=== PATIENT | female | born 1955 | race Caucasian/White ===

== ENCOUNTER → 2016-07-08 | Outpatient (CLI) | payer OTHER ==
[~2016-07-08] MED LIST: CA/D1TAB7 PO; FLUT1BLS INH; IPRA15SP NAS; LOSA100T6 PO; MAGNESIUM PO; MATURE MULTIVITAMIN PO; MELA5TAB PO; OMEP40CA6 PO; SERT50TA5 PO; SIMV20TA3 PO; ZOLP10TA5 PO
== END | disposition home or self-care (01) ==
LOC: CFH 06:47
DX: K76.89 Other specified diseases of liver (principal)
CPT/HCPCS: 76700

== ENCOUNTER → 2017-05-30 | Outpatient (CLI) | payer OTHER ==
[~2017-05-30] MED LIST changes: -MELA5TAB PO; +MELA5TAB19 PO
== END | disposition home or self-care (01) ==
LOC: CFH 13:55
PROVIDERS: ATTEND Genetic Counselor, MS
DX: Z12.31 Encounter for screening mammogram for malignant neoplasm of breast (principal)
CPT/HCPCS: 77063; 77067

== ENCOUNTER → 2017-08-09 | Outpatient (CLI) | payer OTHER | END | disposition home or self-care (01) | LOC: CFH 06:36 | PROVIDERS: ATTEND Genetic Counselor, MS | DX: K76.89 Other specified diseases of liver (principal) | CPT/HCPCS: 76700 ==

== ENCOUNTER → 2018-03-14 | Outpatient (CLI) | payer OTHER ==
[~2018-03-14] MED LIST changes: +LOSA100T14 PO; -LOSA100T6 PO; +SERT50TA28 PO; -SERT50TA5 PO
== END | disposition home or self-care (01) ==
LOC: RAD 07:10
PROVIDERS: ATTEND Surgery
DX: K21.9 Gastro-esophageal reflux disease without esophagitis (principal)
CPT/HCPCS: 74220

== ENCOUNTER 2018-03-27 08:43 | Observation (INO) | payer OTHER ==
[2018-03-20 15:21] VITALS: BP 133/88
[~2018-03-27] VITALS: Ht 152.4 cm; Wt 60.5 kg
[~2018-03-27 08:43] MED LIST changes: +CROM26SP5 NS; +DIPH25CA61 PO; +ESOM40CA PO; +FISH1CAP PO; +FLAX10004 PO; +FLUT15.815 NS; +GABA300C10 PO; +HYDROCHLOROTH12.5 MG PO; +IBUP-1222 PO; +LORA-439 PO; +MULT-658 PO; +SERT100T PO; +ZOLP5TAB6 PO; +allergy shot IM
[2018-03-27] MEDS ORDERED: LACTATED RINGERS 1,000 ML IV SCH (09:28)
[2018-03-27] MEDS ORDERED: OSTEOPOROSIS MED (09:38)
[2018-03-27] MEDS ORDERED: FENTANYL PF 250 MCG/5ML ONE (11:27)
[2018-03-27] MEDS ORDERED: MIDAZOLAM 1 MG/ML, 2ML ONE (11:27)
[2018-03-27] MEDS ORDERED: ROCURONIUM 10MG/ML,5ML ONE (11:28)
[2018-03-27] MEDS ORDERED: LIDOCAINE-MPF 2% ,5ML ONE (11:29)
[2018-03-27] MEDS ORDERED: PROPOFOL 10 MG/ML, 20ML ONE (11:29)
[2018-03-27] MEDS ORDERED: DEXAMETHASONE 4 MG/ML, 1ML ONE ×2 (11:31)
[2018-03-27] MEDS ORDERED: ONDANSETRON 2MG/ML, 2ML ONE ×2 (11:32)
[2018-03-27] MEDS ORDERED: BUPIVACAINE/PF-EPI 0.5% 1:200K ONE (11:32)
[2018-03-27] MEDS ORDERED: DEXMEDETOMIDINE 200 MCG/2 ML ONE (11:44)
[2018-03-27] MEDS ORDERED: CEFOTETAN 2 GM ONE (11:47)
[2018-03-27] MEDS ORDERED: OXYcodone 5 MG/5 ML ORAL.SOL UDC PO PRN (13:00)
[2018-03-27] MEDS ORDERED: FENTANYL PF 100 MCG/2ML IV PRN (13:00)
[2018-03-27] MEDS ORDERED: MEPERIDINE/PF 25MG/0.5ML IVPush PRN (13:00)
[2018-03-27] MEDS ORDERED: HYDROmorphone 2 MG/ML, 1ML IVPush PRN (13:00)
[2018-03-27] MEDS ORDERED: PROMETHAZINE 25 MG/ML, 1ML IV PRN (13:00)
[2018-03-27] MEDS ORDERED: hydrALAzine 20 MG/ML, 1ML IV PRN (13:00)
[2018-03-27] MEDS ORDERED: HALOPERIDOL 5 MG/ML IV PRN (13:00)
[2018-03-27] MEDS ORDERED: FENTANYL PF 100 MCG/2ML ONE (13:36)
[2018-03-27] MEDS ORDERED: PROMETHAZINE 25 MG/ML, 1ML ONE (13:36)
[2018-03-27] MEDS ORDERED: OXYcodone 5 MG/5 ML ORAL.SOL UDC ONE (13:53)
[2018-03-27] MEDS ORDERED: ONDANSETRON 2MG/ML, 2ML IVPush PRN (19:00)
[2018-03-27] MEDS: LACTATED RINGERS 1,000 ML IV SCH (19:00)
[2018-03-27] MEDS ORDERED: ZOLPIDEM 5MG TABLET PO PRN (19:30)
[2018-03-27] MEDS ORDERED: FLUTICASONE NASAL SPRAY 16GM NAS PRN (19:30)
[2018-03-27] MEDS ORDERED: LORATADINE 10 MG TABLET PO PRN (19:30)
[2018-03-27] MEDS: IBUPROFEN 600 MG TABLET PO SCH (20:21)
[2018-03-27] MEDS: ACETAMINOPHEN 500 MG TABLET PO SCH (20:21)
[2018-03-27] MEDS ORDERED: SIMVASTATIN 20 MG TABLET PO SCH (21:00)
[2018-03-27] MEDS: OXYcodone 5 MG/5 ML ORAL.SOL UDC PO PRN (23:07)
[2018-03-28 00:15] VITALS: BP 120/77
[2018-03-28] MEDS: ACETAMINOPHEN 500 MG TABLET PO SCH ×2 (02:29→08:00)
[2018-03-28 03:40] VITALS: BP 132/76
[2018-03-28] MEDS ORDERED: PANTOPROZOLE 40MG TABLET PO SCH (06:00)
[2018-03-28] MEDS: IBUPROFEN 600 MG TABLET PO SCH (06:31)
[2018-03-28 07:05] VITALS: BP 145/83
[2018-03-28] MEDS ORDERED: ENOXAPARIN 40 MG/0.4 ML SQ SCH (08:00)
[2018-03-28] MEDS: OXYcodone 5 MG/5 ML ORAL.SOL UDC PO PRN (08:09)
[2018-03-28] MEDS: LACTATED RINGERS 1,000 ML IV SCH (08:11)
[2018-03-28] MEDS ORDERED: ACET-1600 PO (08:45)
[2018-03-28] MEDS ORDERED: OXYC5TAB3 PO (08:46)
[2018-03-28] MEDS ORDERED: SERTRALINE 100MG TABLET PO SCH (09:00)
[2018-03-28] MEDS ORDERED: MULTIVITAMIN 1 TABLET PO SCH (09:00)
[2018-03-28] MEDS ORDERED: LOSARTAN 50MG TABLET PO SCH (09:00)
[2018-03-28] MEDS ORDERED: GABAPENTIN 300 MG CAPSULE PO SCH (09:00)
== END 2018-03-28 10:40 | disposition home or self-care (01) ==
LOC: OUT 08:43 → ORIP 16:51 → 4NOR 18:47 → DCLOUNGE 03-28 10:10
PROVIDERS: ADMIT Surgery; ATTEND Surgery
DX: K22.70 Barrett's esophagus without dysplasia (principal); K21.9 Gastro-esophageal reflux disease without esophagitis
CPT/HCPCS: 43280; 96372; 96374; G0378; J1100; J1650; J2250; J2405; J2550; J2704; J3010; J3490; J7120

== ENCOUNTER → 2018-07-06 | Outpatient (CLI) | payer OTHER ==
[~2018-07-06] MED LIST changes: +ACET-1600 PO; +OSTEOPOROSIS MED; +OXYC5TAB3 PO
== END | disposition home or self-care (01) ==
LOC: CFH 06:39
PROVIDERS: ATTEND Internal Medicine Cardiovascular Disease
DX: I35.1 Nonrheumatic aortic (valve) insufficiency (principal); I35.8 Other nonrheumatic aortic valve disorders; I10 Essential (primary) hypertension; E78.5 Hyperlipidemia, unspecified
CPT/HCPCS: 93306